=== PATIENT | female | born 1970 | race Hispanic/Latino ===

== ENCOUNTER 2023-10-20 11:25 | Day surgery (SDC) | payer BC ==
[2023-10-20] MEDS ORDERED: Ringers Lactate 1,000 ML IV ONE (11:45)
[2023-10-20] MEDS ORDERED: propofoL 200 MG/20 ML VIAL IV ONE (12:51)
[2023-10-20] MEDS ORDERED: LIDOCAINE 1% MPF 5 ML VIAL ONE (12:52)
[2023-10-20 14:37] VITALS: BP 111/66; TEMP 97; O2SAT 100
== END 2023-10-20 14:40 | disposition home or self-care (01) ==
LOC: OR 11:25
PROVIDERS: ATTEND Surgery
PROC: 0DJD8ZZ Inspection of Lower Intestinal Tract, Via Natural or Artificial Opening Endoscopic (ICD-10-PCS; principal; 2023-10-20 12:30)
DX: Z12.11 Encounter for screening for malignant neoplasm of colon (principal); K64.4 Residual hemorrhoidal skin tags; K64.8 Other hemorrhoids
CPT/HCPCS: 45378; J2704; J2001; J7120